=== PATIENT | female | born 1980 | race African-American/Black ===

== ENCOUNTER 2023-05-06 15:13 | Emergency (ER) | payer BC | END 2023-05-06 17:32 | disposition home or self-care (01) | LOC: CSHERS 15:13 | DX: R10.2 Pelvic and perineal pain (principal); E11.9 Type 2 diabetes mellitus without complications; I10 Essential (primary) hypertension; Z79.899 Other long term (current) drug therapy | CPT/HCPCS: 76856 ==

== ENCOUNTER 2023-06-28 06:07 | Day surgery (SDC) | payer BC, OTHER ==
[2023-06-26 15:57] VITALS: BMI 53.5
[2023-06-28] MEDS ORDERED: CeleCOXIB 100 MG CAP ONE (06:24)
[2023-06-28] MEDS ORDERED: Gabapentin 300 MG CAP ONE (06:25)
[2023-06-28] MEDS ORDERED: Bupivacaine PF 0.5% 30 ML VIAL ONE (06:25)
[2023-06-28] MEDS ORDERED: Famotidine/PF 20 mg/2ml Vial ONE (06:25)
[2023-06-28] MEDS ORDERED: EPINEPHrine 1 MG/ML VIAL ONE (06:25)
[2023-06-28] MEDS ORDERED: Rocuronium Bromide 10 MG/ML (10ML VIAL) ONE (06:33)
[2023-06-28] MEDS ORDERED: Lidocaine 1% PF 5 ML VIAL ONE (06:33)
[2023-06-28] MEDS ORDERED: Ondansetron PF 4 MG/2 ML Vial ONE (06:33)
[2023-06-28] MEDS ORDERED: Dexamethasone 20 MG/5 ML VIAL ONE (06:33)
[2023-06-28] MEDS ORDERED: Midazolam HCl 2 mg/2 ml Vial ONE (06:34)
[2023-06-28] MEDS ORDERED: PROPOFOL 20 ML ONE ×2 (06:34→07:58)
[2023-06-28] MEDS ORDERED: Fentanyl 250 MCG/5 ML VIAL ONE (06:34)
[2023-06-28] MEDS ORDERED: Dexmedetomidine 200 MCG/2 ML VIAL ONE (06:37)
[2023-06-28] MEDS ORDERED: Lidocaine 4% Topical Sol 50 ML BOT ONE (06:38)
[2023-06-28] MEDS ORDERED: CEFAZOLIN 2 GM VIAL ONE (07:24)
[2023-06-28] MEDS ORDERED: PHENYLEPHRINE-NS 100 MCG/ML 10 ML SYRINGE ONE (08:00)
[2023-06-28] MEDS ORDERED: fentaNYL 50 mcg/mL 1 mL Vial ONE (08:52)
[2023-06-28] MEDS ORDERED: oxyCODONE 5 MG TAB ONE (13:40)
[2023-06-28 14:06] LABS: Hemoglobin 12.7 g/dL (12.0-15.5); Mean Corpuscular HGB CONC 29.5 g/dL (32.0-36.0); Mean Corpuscular Hemoglobin 23.2 pg (27.0-33.0); Mean Corpuscular Volume 78.6 fl (81.6-98.3); Mean Platelet Volume 9.9 fl (7.4-10.4); Platelet Count 509 10x3/uL (150-450); RBC Distribution Width 17.2 % (11.5-14.5); Red Blood Cell (RBC) Count 5.47 10x6/uL (3.90-5.03); White Blood Cell (WBC) Count 22.6 10x3/uL (3.5-10.5)
== END 2023-06-28 14:55 | disposition home or self-care (01) ==
LOC: CSHSDC 06:07
PROVIDERS: ATTEND Obstetrics & Gynecology
PROC: 0UT64ZZ Resection of Left Fallopian Tube, Percutaneous Endoscopic Approach (ICD-10-PCS; principal; 2023-06-28)
PROC: 0UT94ZZ Resection of Uterus, Percutaneous Endoscopic Approach (ICD-10-PCS; principal; 2023-06-28)
PROC: 0DNE4ZZ Release Large Intestine, Percutaneous Endoscopic Approach (ICD-10-PCS; principal; 2023-06-28)
DX: D25.9 Leiomyoma of uterus, unspecified (principal); N85.00 Endometrial hyperplasia, unspecified; N73.6 Female pelvic peritoneal adhesions (postinfective); D64.9 Anemia, unspecified; E66.9 Obesity, unspecified; E11.9 Type 2 diabetes mellitus without complications; I10 Essential (primary) hypertension; J45.909 Unspecified asthma, uncomplicated; Z68.43 Body mass index [BMI] 50.0-59.9, adult; Z79.84 Long term (current) use of oral hypoglycemic drugs; Z79.899 Other long term (current) drug therapy; Z88.5 Allergy status to narcotic agent; Z88.0 Allergy status to penicillin; Z91.013 Allergy to seafood; Z98.51 Tubal ligation status
CPT/HCPCS: 85027; 88307; C9250; J0171; J1100; J2250; J2405; J2704; J3010; Q9968; S0020; S0028

== ENCOUNTER 2023-07-06 18:19 | Inpatient (IN) | payer BC, OTHER ==
[~2023-07-06 18:19] MED LIST: Iopamidol 300 61% 100 ML VIAL FS ONE
[2023-07-06] MEDS ORDERED: Ketorolac Tromethamine 30 MG/ML VIAL ONE (18:59)
[2023-07-06] MEDS ORDERED: Ondansetron PF 4 MG/2 ML Vial ONE (18:59)
[2023-07-06] MEDS ORDERED: Acetaminophen 500 MG TAB ONE (18:59)
[2023-07-06] MEDS ORDERED: Vancomycin 1 GM VIAL ONE (18:59)
[2023-07-06 19:05] LABS: #Basophils 0.1 10x3/uL (0.0-0.2); #Eosinphils 0.4 10x3/uL (0.0-0.5); #Monocytes 1.5 10x3/uL (0.0-1.1); #Neutrophils 19.9 10x3/uL (1.5-8.4); %Basophils 0.3 % (0.0-2.0); %Eosinophils 1.8 % (0.0-6.0); %Lymphocytes 6.9 % (18.0-47.0); %Monocytes 6.3 % (0.0-10.0); %Neutrophils 84.1 % (40.0-75.0); Hematocrit 36.8 % (34.9-44.5); Hemoglobin 11.1 g/dL (12.0-15.5); Mean Corpuscular HGB CONC 30.2 g/dL (32.0-36.0); Mean Corpuscular Hemoglobin 22.9 pg (27.0-33.0); Mean Corpuscular Volume 75.9 fl (81.6-98.3); Mean Platelet Volume 9.6 fl (7.4-10.4); Platelet Count 539 10x3/uL (150-450); RBC Distribution Width 16.6 % (11.5-14.5); Red Blood Cell (RBC) Count 4.85 10x6/uL (3.90-5.03); White Blood Cell (WBC) Count 23.6 10x3/uL (3.5-10.5)
[2023-07-06 19:14] LABS: ALT (SGPT) 8 U/L (8-55); AST (SGOT) 13 U/L (5-34); Albumin 3.9 g/dL (3.5-5.0); Alkaline Phosphatase 93 U/L (40-110); Anion Gap 17 mmol/L (10-20); BUN (Urea Nitrogen) 10 mg/dL (7.0-18.7); Bilirubin, Total 0.6 mg/dL (0.2-1.2); Calc. Creatinine Clearance 0 mL/min (70-130); Calcium 8.8 mg/dL (7.8-10.44); Carbon Dioxide 22 mmol/L (22-29); Chloride 100 mmol/L (98-107); Estimated GFR 99; Globulin 3.8 g/dL (2.4-3.5); Glucose 145 mg/dL (70-105); Magnesium 2.1 mg/dL (1.6-2.6); Potassium 4.2 mmol/L (3.5-5.1); Protein, Total 7.7 g/dL (6.0-8.3); Sodium 135 mmol/L (136-145)
[2023-07-06 19:17] LABS: Troponin I Less than 0.010 ng/mL (< 0.028)
[2023-07-06] MEDS ORDERED: diphenhydrAMINE 50 MG/ML VIAL ONE (19:30)
[2023-07-06] MEDS ORDERED: Famotidine/PF 20 mg/2ml Vial ONE (19:31)
[2023-07-06] MEDS ORDERED: methylPREDNISolone Sod Succ 40 MG VIAL ONE (19:31)
[2023-07-06 19:35] LABS: Lipase Less than 4 U/L (8-78)
[2023-07-06 20:41] LABS: SARS-CoV-2 NAA Rapid Test Not Detected (NotDetected)
[2023-07-06] MEDS ORDERED: Guaifenesin DM 100-10/5 ML UDCUP PO PRN (22:36)
[2023-07-06] MEDS ORDERED: Calcium Carbonate 500 MG ChewTAB PO PRN (22:36)
[2023-07-06] MEDS ORDERED: Glucagon 1 MG/ML KIT IM PRN (22:36)
[2023-07-06] MEDS ORDERED: Bisacodyl 10 MG SUPP PR PRN (22:36)
[2023-07-06] MEDS ORDERED: Dextrose 50% Abboject 50 ML SYRINGE SLOW IVP PRN (22:36)
[2023-07-06] MEDS ORDERED: Ondansetron PF 4 MG/2 ML Vial IVP PRN (22:36)
[2023-07-06] MEDS ORDERED: Dextrose 5% in Water 1,000 ML IV PRN (22:36)
[2023-07-06] MEDS ORDERED: Pantoprazole 40 MG VIAL IVP SCH (22:45)
[2023-07-06] MEDS ORDERED: Ipratropium/Albuterol 3 ML NEB NEB PRN (22:49)
[2023-07-06] MEDS ORDERED: metroNIDAZOLE 500 MG/100 ML BAG ONE (23:26)
[2023-07-07] MEDS: Lactated Ringer's 1,000 ML IV SCH ×3 (00:36→13:31)
[2023-07-07 00:48] VITALS: BMI 50.4
[2023-07-07] MEDS: HumaLOG 300 UNITS/3 ML VIAL SC PRN (00:49)
[2023-07-07 04:02] LABS: Hematocrit 33.6 % (34.9-44.5); Hemoglobin 10.1 g/dL (12.0-15.5); Mean Corpuscular HGB CONC 30.1 g/dL (32.0-36.0); Mean Corpuscular Hemoglobin 22.9 pg (27.0-33.0); Mean Corpuscular Volume 76.2 fl (81.6-98.3); Mean Platelet Volume 9.3 fl (7.4-10.4); Platelet Count 512 10x3/uL (150-450); RBC Distribution Width 16.7 % (11.5-14.5); Red Blood Cell (RBC) Count 4.41 10x6/uL (3.90-5.03); White Blood Cell (WBC) Count 26.9 10x3/uL (3.5-10.5)
[2023-07-07 04:08] LABS: MDiff Complete? YES
[2023-07-07 04:09] LABS: ALT (SGPT) 12 U/L (8-55); AST (SGOT) 17 U/L (5-34); Albumin 3.4 g/dL (3.5-5.0); Alkaline Phosphatase 83 U/L (40-110); Anion Gap 14 mmol/L (10-20); BUN (Urea Nitrogen) 10 mg/dL (7.0-18.7); Bilirubin, Total 0.4 mg/dL (0.2-1.2); Calc. Creatinine Clearance 216 mL/min (70-130); Calcium 8.8 mg/dL (7.8-10.44); Carbon Dioxide 20 mmol/L (22-29); Chloride 104 mmol/L (98-107); Estimated GFR 95; Globulin 4.2 g/dL (2.4-3.5); Glucose 283 mg/dL (70-105); Potassium 4.3 mmol/L (3.5-5.1); Protein, Total 7.6 g/dL (6.0-8.3); Sodium 134 mmol/L (136-145)
[2023-07-07 04:37] LABS: Microcytosis SLIGHT = 6-15 cells (100X) (0-5/hpf); Platelet Adequacy Comment Appears Increased
[2023-07-07 04:39] LABS: Band 10 % (5-11); Lymphocytes 7 % (21-51); Metamyelocyte 2 % (0-0); Monocytes 5 % (0-10); Neutrophil 76 % (42-75)
[2023-07-07] MEDS: metroNIDAZOLE 500 MG in Premix Bag 1 BAG IVPB SCH ×3 (06:34→22:11)
[2023-07-07] MEDS: Pantoprazole 40 MG VIAL IVP SCH ×2 (08:29→22:10)
[2023-07-07] MEDS: Lantus 1000 UNITS/10 ML VIAL SC SCH (08:30)
[2023-07-07] MEDS: Cefepime 2 GM in Sodium Chloride 0.9% 100 ML IVPB SCH ×2 (08:30→22:09)
[2023-07-07] MEDS: Lisinopril 10 MG TAB PO SCH (08:31)
[2023-07-07] MEDS: Senokot S 8.6-50 MG TAB PO SCH ×2 (08:31→22:10)
[2023-07-07] MEDS ORDERED: FLU VACC QS2023-24(6MOS UP)/PF 60 MCG/0.5 ML SYRINGE IM ONE (09:00)
[2023-07-07] MEDS ORDERED: glyBURIDE 5 MG TAB PO SCH (09:00)
[2023-07-07] MEDS: Morphine 2 MG/ML VIAL SLOW IVP PRN (09:40)
[2023-07-07] MEDS: Mometasone/Formoterol 200/5 60 PUFF INH SCH ×2 (11:05→21:04)
[2023-07-07] MEDS ORDERED: Polyethylene Glycol 3350 17 GM Packet PO SCH (13:00)
[2023-07-07 13:42] LABS: Hematocrit 31.3 % (34.9-44.5); Hemoglobin 9.6 g/dL (12.0-15.5); Platelet Count 493 10x3/uL (150-450)
[2023-07-07 14:23] LABS: INR-International Normal Ratio 1.1; PTT 30.4 sec (22.0-33.0); Prothrombin Time 11.4 sec (9.5-12.1)
[2023-07-07 14:33] LABS: Fibrinogen Greater than 840 mg/dL (220-504)
[2023-07-07] MEDS: Morphine 4 MG/ML VIAL SLOW IVP PRN (17:17)
[2023-07-07] MEDS: Acetaminophen 325 MG TAB PO PRN (22:10)
[2023-07-08 05:35] LABS: #Eosinphils 0.2 10x3/uL (0.0-0.5); #Monocytes 1.5 10x3/uL (0.0-1.1); #Neutrophils 15.4 10x3/uL (1.5-8.4); %Basophils 0.2 % (0.0-2.0); %Lymphocytes 11.4 % (18.0-47.0); %Monocytes 7.5 % (0.0-10.0); %Neutrophils 79.2 % (40.0-75.0); Hematocrit 30.2 % (34.9-44.5); Hemoglobin 9.1 g/dL (12.0-15.5); Mean Corpuscular HGB CONC 30.1 g/dL (32.0-36.0); Mean Corpuscular Volume 76.3 fl (81.6-98.3); Mean Platelet Volume 9.4 fl (7.4-10.4); Platelet Count 468 10x3/uL (150-450); RBC Distribution Width 16.7 % (11.5-14.5); Red Blood Cell (RBC) Count 3.96 10x6/uL (3.90-5.03); White Blood Cell (WBC) Count 19.5 10x3/uL (3.5-10.5)
[2023-07-08 05:53] LABS: ALT (SGPT) 11 U/L (8-55); AST (SGOT) 9 U/L (5-34); Alkaline Phosphatase 82 U/L (40-110); Anion Gap 11 mmol/L (10-20); BUN (Urea Nitrogen) 10 mg/dL (7.0-18.7); Bilirubin, Total 0.2 mg/dL (0.2-1.2); Calc. Creatinine Clearance 247 mL/min (70-130); Calcium 8.3 mg/dL (7.8-10.44); Carbon Dioxide 25 mmol/L (22-29); Chloride 107 mmol/L (98-107); Estimated GFR 110; Globulin 3.7 g/dL (2.4-3.5); Glucose 140 mg/dL (70-105); Potassium 4.1 mmol/L (3.5-5.1); Protein, Total 6.7 g/dL (6.0-8.3); Sodium 139 mmol/L (136-145)
[2023-07-08] MEDS: metroNIDAZOLE 500 MG in Premix Bag 1 BAG IVPB SCH ×3 (06:46→21:26)
[2023-07-08] MEDS: Lactated Ringer's 1,000 ML IV SCH ×2 (06:47→11:47)
[2023-07-08] MEDS: Mometasone/Formoterol 200/5 60 PUFF INH SCH ×2 (07:35→19:25)
[2023-07-08] MEDS: Polyethylene Glycol 3350 17 GM Packet PO SCH (10:15)
[2023-07-08] MEDS: Morphine 4 MG/ML VIAL SLOW IVP PRN ×3 (10:15→21:34)
[2023-07-08] MEDS: Pantoprazole 40 MG VIAL IVP SCH ×2 (10:15→21:24)
[2023-07-08] MEDS: Cefepime 2 GM in Sodium Chloride 0.9% 100 ML IVPB SCH ×2 (10:15→21:23)
[2023-07-08] MEDS: Lantus 1000 UNITS/10 ML VIAL SC SCH (10:16)
[2023-07-08] MEDS: Senokot S 8.6-50 MG TAB PO SCH ×2 (10:16→21:26)
[2023-07-08] MEDS: Lisinopril 10 MG TAB PO SCH (10:16)
[2023-07-08] MEDS ORDERED: VANCOMYCIN 2 GRAM/400 ML BAG 2 GM in Premix Bag 1 BAG IVPB SCH ×2 (11:45→12:30)
[2023-07-08 19:24] LABS: Hematocrit 33.6 % (34.9-44.5); Hemoglobin 10.2 g/dL (12.0-15.5); Platelet Count 531 10x3/uL (150-450)
[2023-07-09] MEDS ORDERED: Cefdinir 300 MG CAP PO SCH (00:15)
[2023-07-09] MEDS ORDERED: metroNIDAZOLE 500 MG TAB PO SCH (00:15)
[2023-07-09] MEDS ORDERED: Linezolid 600 MG TAB PO SCH (00:15)
[2023-07-09] MEDS: Lactated Ringer's 1,000 ML IV SCH ×2 (03:58→14:44)
[2023-07-09] MEDS: VANCOMYCIN 1.25 GM/250 ML BAG 1.25 GM in Premix Bag 1 BAG IVPB SCH ×2 (03:59→14:41)
[2023-07-09] MEDS: Acetaminophen 325 MG TAB PO PRN (04:08)
[2023-07-09 04:41] LABS: #Basophils 0.1 10x3/uL (0.0-0.2); #Eosinphils 0.6 10x3/uL (0.0-0.5); #Monocytes 1.4 10x3/uL (0.0-1.1); #Neutrophils 11.4 10x3/uL (1.5-8.4); %Basophils 0.3 % (0.0-2.0); %Eosinophils 3.8 % (0.0-6.0); %Lymphocytes 15.1 % (18.0-47.0); %Monocytes 8.8 % (0.0-10.0); %Neutrophils 71.2 % (40.0-75.0); Hematocrit 32.5 % (34.9-44.5); Mean Corpuscular HGB CONC 30.8 g/dL (32.0-36.0); Mean Corpuscular Hemoglobin 23.4 pg (27.0-33.0); Mean Corpuscular Volume 75.9 fl (81.6-98.3); Mean Platelet Volume 9.4 fl (7.4-10.4); Platelet Count 512 10x3/uL (150-450); RBC Distribution Width 16.9 % (11.5-14.5); Red Blood Cell (RBC) Count 4.28 10x6/uL (3.90-5.03)
[2023-07-09 05:01] LABS: ALT (SGPT) 9 U/L (8-55); Alkaline Phosphatase 80 U/L (40-110); Anion Gap 15 mmol/L (10-20); BUN (Urea Nitrogen) 11 mg/dL (7.0-18.7); Bilirubin, Total 0.3 mg/dL (0.2-1.2); Calc. Creatinine Clearance 244 mL/min (70-130); Calcium 8.4 mg/dL (7.8-10.44); Carbon Dioxide 20 mmol/L (22-29); Chloride 104 mmol/L (98-107); Estimated GFR 109; Globulin 4.3 g/dL (2.4-3.5); Glucose 138 mg/dL (70-105); Potassium 4.3 mmol/L (3.5-5.1); Protein, Total 7.3 g/dL (6.0-8.3); Sodium 135 mmol/L (136-145)
[2023-07-09 05:50] LABS: AST (SGOT) 18 U/L (5-34)
[2023-07-09] MEDS: Mometasone/Formoterol 200/5 60 PUFF INH SCH ×2 (07:22→20:25)
[2023-07-09] MEDS: Lantus 1000 UNITS/10 ML VIAL SC SCH (09:20)
[2023-07-09] MEDS: metroNIDAZOLE 500 MG in Premix Bag 1 BAG IVPB SCH (09:21)
[2023-07-09] MEDS: Pantoprazole 40 MG VIAL IVP SCH (13:17)
[2023-07-09] MEDS: Morphine 4 MG/ML VIAL SLOW IVP PRN ×2 (13:21→20:09)
[2023-07-09] MEDS: Lisinopril 10 MG TAB PO SCH (13:22)
[2023-07-09] MEDS: Polyethylene Glycol 3350 17 GM Packet PO SCH (13:22)
[2023-07-09] MEDS: Cefepime 2 GM in Sodium Chloride 0.9% 100 ML IVPB SCH ×3 (13:22→23:45)
[2023-07-09] MEDS: Senokot S 8.6-50 MG TAB PO SCH (13:23)
[2023-07-09 15:07] LABS: Bilirubin Neg (Negative); Blood, Urine 150 (Negative); Clarity Clear (Clear); Glucose, Urine (Dipstick) Normal (Negative); Ketone, Urine Negative (Negative); Leukocyte 500 (Negative); Nitrite Negative (Negative); Protein, Urine (Dipstick) 15 mg/dl (Neg-Trace); Urobilinogen Normal mg/dL (Less than 2); pH, Urine 6.5 (5.0-9.0)
[2023-07-09 15:31] LABS: Bacteria/HPF 2+ HPF (None Seen); CAUTI Indications for Culture Fever or rigors; Squamous Epithelial 0-3 HPF (0-3); WBC/HPF Greater than 50 HPF (0-3)
[2023-07-09 15:33] LABS: Urine Culture Reflex Yes Yes
[2023-07-09 19:40] LABS: Hematocrit 33.9 % (34.9-44.5); Hemoglobin 10.3 g/dL (12.0-15.5); Platelet Count 590 10x3/uL (150-450)
[2023-07-10] MEDS: Acetaminophen 325 MG TAB PO PRN ×2 (00:23→07:28)
[2023-07-10 01:23] LABS: Hematocrit 30.8 % (34.9-44.5); Hemoglobin 9.4 g/dL (12.0-15.5); Mean Corpuscular HGB CONC 30.5 g/dL (32.0-36.0); Mean Corpuscular Hemoglobin 22.9 pg (27.0-33.0); Mean Corpuscular Volume 74.9 fl (81.6-98.3); Mean Platelet Volume 8.9 fl (7.4-10.4); Platelet Count 492 10x3/uL (150-450); RBC Distribution Width 16.6 % (11.5-14.5); Red Blood Cell (RBC) Count 4.11 10x6/uL (3.90-5.03); White Blood Cell (WBC) Count 16.2 10x3/uL (3.5-10.5)
[2023-07-10 01:32] LABS: Vancomycin, Trough 6.8 ug/mL
[2023-07-10 01:40] LABS: ALT (SGPT) Less than 7 U/L (8-55); AST (SGOT) 7 U/L (5-34); Albumin 3.1 g/dL (3.5-5.0); Alkaline Phosphatase 74 U/L (40-110); Anion Gap 15 mmol/L (10-20); BUN (Urea Nitrogen) 9 mg/dL (7.0-18.7); Bilirubin, Total 0.3 mg/dL (0.2-1.2); Calc. Creatinine Clearance 244 mL/min (70-130); Calcium 8.5 mg/dL (7.8-10.44); Carbon Dioxide 23 mmol/L (22-29); Chloride 102 mmol/L (98-107); Estimated GFR 109; Globulin 3.7 g/dL (2.4-3.5); Glucose 181 mg/dL (70-105); Potassium 3.7 mmol/L (3.5-5.1); Protein, Total 6.8 g/dL (6.0-8.3); Sodium 136 mmol/L (136-145)
[2023-07-10] MEDS: VANCOMYCIN 1.25 GM/250 ML BAG 1.25 GM in Premix Bag 1 BAG IVPB SCH ×2 (02:07→14:55)
[2023-07-10 02:21] LABS: Band 1 % (5-11); Eosinophils 1 % (0-10); Lymphocytes 14 % (21-51); Monocytes 11 % (0-10); Reactive Lymphocytes 1 % (0-10)
[2023-07-10 02:24] LABS: Microcytosis SLIGHT = 6-15 cells (100X) (0-5/hpf); Platelet Adequacy Comment Appears Adequate; Polychromasia SLIGHT = 2-3 cells (100X) (0-2/hpf)
[2023-07-10 02:25] LABS: MDiff Complete? YES; Neutrophil 71 % (42-75)
[2023-07-10] MEDS: Lactated Ringer's 1,000 ML IV SCH ×2 (04:06→18:18)
[2023-07-10] MEDS: Mometasone/Formoterol 200/5 60 PUFF INH SCH ×2 (06:25→19:40)
[2023-07-10] MEDS ORDERED: Ibuprofen 400 MG TAB PO PRN (07:13)
[2023-07-10] MEDS ORDERED: Bupivacaine 0.25% HCL 30 ML VIAL ONE (09:19)
[2023-07-10] MEDS: Lisinopril 10 MG TAB PO SCH (09:53)
[2023-07-10] MEDS: Polyethylene Glycol 3350 17 GM Packet PO SCH (09:53)
[2023-07-10] MEDS: Acetaminophen 500 MG TAB PO SCH ×3 (09:54→20:16)
[2023-07-10] MEDS ORDERED: Dexamethasone 20 MG/5 ML VIAL ONE (10:11)
[2023-07-10] MEDS ORDERED: Ondansetron PF 4 MG/2 ML Vial ONE (10:11)
[2023-07-10] MEDS ORDERED: Rocuronium Bromide 10 MG/ML (10ML VIAL) ONE (10:11)
[2023-07-10] MEDS ORDERED: PROPOFOL 20 ML ONE (10:11)
[2023-07-10] MEDS ORDERED: Midazolam HCl 2 mg/2 ml Vial ONE (10:12)
[2023-07-10] MEDS ORDERED: fentaNYL 50 mcg/mL 1 mL Vial ONE (10:12)
[2023-07-10] MEDS: Cefepime 2 GM in Sodium Chloride 0.9% 100 ML IVPB SCH (18:12)
[2023-07-10] MEDS: Morphine 4 MG/ML VIAL SLOW IVP PRN (20:15)
[2023-07-11] MEDS: Cefepime 2 GM in Sodium Chloride 0.9% 100 ML IVPB SCH ×2 (00:10→11:34)
[2023-07-11 01:42] LABS: Hematocrit 31.5 % (34.9-44.5); Hemoglobin 9.5 g/dL (12.0-15.5); Mean Corpuscular HGB CONC 30.2 g/dL (32.0-36.0); Mean Corpuscular Hemoglobin 22.8 pg (27.0-33.0); Mean Corpuscular Volume 75.7 fl (81.6-98.3); Mean Platelet Volume 9.2 fl (7.4-10.4); Platelet Count 481 10x3/uL (150-450); RBC Distribution Width 16.7 % (11.5-14.5); Red Blood Cell (RBC) Count 4.16 10x6/uL (3.90-5.03); White Blood Cell (WBC) Count 14.2 10x3/uL (3.5-10.5)
[2023-07-11 01:44] LABS: MDiff Complete? YES
[2023-07-11 01:48] LABS: Vancomycin, Trough 9.4 ug/mL
[2023-07-11 01:56] LABS: ALT (SGPT) Less than 7 U/L (8-55); AST (SGOT) 11 U/L (5-34); Alkaline Phosphatase 77 U/L (40-110); Anion Gap 14 mmol/L (10-20); BUN (Urea Nitrogen) 9 mg/dL (7.0-18.7); Bilirubin, Total 0.2 mg/dL (0.2-1.2); Calc. Creatinine Clearance 234 mL/min (70-130); Calcium 8.2 mg/dL (7.8-10.44); Carbon Dioxide 24 mmol/L (22-29); Chloride 104 mmol/L (98-107); Estimated GFR 104; Globulin 3.2 g/dL (2.4-3.5); Glucose 158 mg/dL (70-105); Protein, Total 6.2 g/dL (6.0-8.3); Sodium 138 mmol/L (136-145)
[2023-07-11 02:39] LABS: Band 2 % (5-11); Eosinophils 4 % (0-10); Lymphocytes 13 % (21-51); Monocytes 8 % (0-10); Neutrophil 69 % (42-75); Reactive Lymphocytes 4 % (0-10)
[2023-07-11 02:43] LABS: Anisocytosis SLIGHT = 6-15 cells (100X) (0-5/hpf); Microcytosis SLIGHT = 6-15 cells (100X) (0-5/hpf)
[2023-07-11 02:44] LABS: Macrocytosis SLIGHT = 6-15 cells (100X) (0-5/hpf); Platelet Adequacy Comment Appears Adequate
[2023-07-11] MEDS: Acetaminophen 500 MG TAB PO SCH ×4 (02:45→21:41)
[2023-07-11] MEDS: VANCOMYCIN 1.75 GM/350 ML BAG 1.75 GM in Premix Bag 1 BAG IVPB SCH ×2 (02:45→15:33)
[2023-07-11] MEDS: Mometasone/Formoterol 200/5 60 PUFF INH SCH ×2 (07:06→19:26)
[2023-07-11] MEDS: Morphine 4 MG/ML VIAL SLOW IVP PRN (07:38)
[2023-07-11] MEDS: Lactated Ringer's 1,000 ML IV SCH ×2 (07:41→22:20)
[2023-07-11] MEDS: Lisinopril 10 MG TAB PO SCH (09:48)
[2023-07-11] MEDS: Polyethylene Glycol 3350 17 GM Packet PO SCH (09:51)
[2023-07-11] MEDS: Ibuprofen 200 MG TAB PO PRN ×2 (15:46→21:42)
[2023-07-11] MEDS: HumaLOG 300 UNITS/3 ML VIAL SC PRN (15:53)
[2023-07-12] MEDS: VANCOMYCIN 1.75 GM/350 ML BAG 1.75 GM in Premix Bag 1 BAG IVPB SCH (02:25)
[2023-07-12] MEDS: Ibuprofen 200 MG TAB PO PRN (02:25)
[2023-07-12] MEDS: Acetaminophen 500 MG TAB PO SCH ×2 (02:25→08:33)
[2023-07-12 04:42] LABS: ALT (SGPT) 7 U/L (8-55); AST (SGOT) 12 U/L (5-34); Albumin 2.8 g/dL (3.5-5.0); Alkaline Phosphatase 77 U/L (40-110); Anion Gap 13 mmol/L (10-20); BUN (Urea Nitrogen) 7 mg/dL (7.0-18.7); Bilirubin, Total 0.2 mg/dL (0.2-1.2); Calc. Creatinine Clearance 259 mL/min (70-130); Calcium 8.7 mg/dL (7.8-10.44); Carbon Dioxide 22 mmol/L (22-29); Chloride 103 mmol/L (98-107); Estimated GFR 111; Globulin 3.7 g/dL (2.4-3.5); Glucose 216 mg/dL (70-105); Potassium 4.1 mmol/L (3.5-5.1); Protein, Total 6.5 g/dL (6.0-8.3); Sodium 134 mmol/L (136-145)
[2023-07-12 04:43] LABS: #Basophils 0.1 10x3/uL (0.0-0.2); #Eosinphils 0.6 10x3/uL (0.0-0.5); #Monocytes 0.9 10x3/uL (0.0-1.1); %Basophils 0.6 % (0.0-2.0); %Eosinophils 5.3 % (0.0-6.0); %Lymphocytes 22.1 % (18.0-47.0); %Monocytes 7.5 % (0.0-10.0); %Neutrophils 60.8 % (40.0-75.0); Hematocrit 30.4 % (34.9-44.5); Hemoglobin 9.2 g/dL (12.0-15.5); Mean Corpuscular HGB CONC 30.3 g/dL (32.0-36.0); Mean Platelet Volume 9.5 fl (7.4-10.4); Platelet Count 488 10x3/uL (150-450); RBC Distribution Width 16.7 % (11.5-14.5); White Blood Cell (WBC) Count 11.5 10x3/uL (3.5-10.5)
[2023-07-12] MEDS: Morphine 2 MG/ML VIAL SLOW IVP PRN (07:29)
[2023-07-12] MEDS: Lisinopril 10 MG TAB PO SCH (08:33)
[2023-07-12] MEDS: Polyethylene Glycol 3350 17 GM Packet PO SCH (08:35)
[2023-07-12 09:26] VITALS: BP 140/74; TEMP 97.9
[2023-07-12] MEDS: Lactated Ringer's 1,000 ML IV SCH (10:06)
== END 2023-07-12 11:30 | disposition home or self-care (01) | DRG 872 ==
LOC: CSHERS 18:19 → CSHTELE 22:24 → OBSVTOIN 22:25 → UNDOADMOB 07-07 00:02 → CSHTELE 07-07 00:02 → INTOOBSV 07-07 00:02 → OBSVTOIN 07-07 00:02
PROVIDERS: ADMIT Student in an Organized Health Care Education/Training Program; ATTEND Internal Medicine
PROC: 06HY33Z Insertion of Infusion Device into Lower Vein, Percutaneous Approach (ICD-10-PCS; principal; 2023-07-09)
PROC: 3E03329 Introduction of Other Anti-infective into Peripheral Vein, Percutaneous Approach (ICD-10-PCS; 2023-07-09)
PROC: 0UJH7ZZ Inspection of Vagina and Cul-de-sac, Via Natural or Artificial Opening (ICD-10-PCS; 2023-07-10)
DX: A41.1 Sepsis due to other specified staphylococcus (principal); N10 Acute pyelonephritis; Z68.42 Body mass index [BMI] 45.0-49.9, adult; K59.00 Constipation, unspecified; E11.9 Type 2 diabetes mellitus without complications; R30.0 Dysuria; G47.33 Obstructive sleep apnea (adult) (pediatric); Z20.822 Contact with and (suspected) exposure to COVID-19; E66.01 Morbid (severe) obesity due to excess calories; K57.90 Diverticulosis of intestine, part unspecified, without perforation or abscess without bleeding; N93.8 Other specified abnormal uterine and vaginal bleeding; Z90.710 Acquired absence of both cervix and uterus; Z98.891 History of uterine scar from previous surgery; Z90.721 Acquired absence of ovaries, unilateral; Z88.5 Allergy status to narcotic agent; Z88.0 Allergy status to penicillin; Z91.013 Allergy to seafood; Z79.899 Other long term (current) drug therapy; Z79.84 Long term (current) use of oral hypoglycemic drugs
CPT/HCPCS: 36415; 36416; 74177; 80053; 80202; 81001; 82274; 83605; 83690; 83735; 84145; 84443; 84484; 85025; 85384; 85610; 85730; 87040; 87070; 87077; 87086; 87149; 87186; 87205; 93005; 94664; 94760; 96374; 96375; C9113; J0692; J1100; J1200; J1650; J1815; J1885; J2250; J2270; J2272; J2405; J2704; J2920; J3010; J3370; J3490; J7120; Q9967; S0020; S0028